=== PATIENT | female | born 1990 | race Caucasian/White ===

== ENCOUNTER 2018-01-12 18:42 | Emergency (ER) | payer BC, OTHER ==
[~2018-01-12] VITALS: Ht 170.2 cm; Wt 90.7 kg
[2018-01-12] MEDS ORDERED: LACTATED RINGERS 1,000 ML IV ONE (18:56)
--- NOTE | 2018-01-12 19:05 | ED Trauma-Multisystem ---
General Chief Complaint: Trauma POV Arrival Activation Stated Complaint: R ARM INJ AND HEAD BUCKED OFF HORSE/POSS CONCUSSIO Source of Information: Patient, Family, Spouse Exam Limitations: No Limitations History of Present Illness Date Seen by Provider: January 12, 2018 Time Seen by Provider: 18:47 Initial Comments Patient arrives by POV with chief complaint of being bucked off a horse landing on her right shoulder and neck. She's having pain in her right shoulder not so much in her neck. She says she has no pain in her head. She says she was knocked out for an unknown amount several minutes. She says after that she had about 15-20 minutes of complete blindness in bilateral eyes. She denies any double vision or blurry vision. She denies any previous medical or substantial surgical history. She says she has broke her arm in the past years ago. She is not on control. She does not take any medicines nor did she have allergies. She does not smoke but drinks occasionally with her last drink about 3 days ago. She denies any recreational drug use. She says the fall injury happened within the last 45 minutes. Her father picked her up and brought her straight to the ER which she says takes about [address] Allergies and Home Medications Allergies Coded Allergies: No Known Drug Allergies (Unverified , 01/12/18) Home Medications Hydrocodone Bit/Acetaminophen 1 Tab Tab, 1-2 EACH PO Q6H PRN for BREAKTHROUGH PAIN Prescribed by: CRISTIAN RICH on 01/12/182033 Patient Home Medication List Home Medication List Reviewed: Yes Review of Systems Constitutional: No chills, No diaphoresis Eyes: Blindness; Denies Blurred Vision, Denies Drainage, Denies Pain Ears: Denies Dizziness, Denies Pain Nose: No Bloody Discharge, No Clear Discharge Mouth: No Bloody Discharge, No Clear Discharge Throat: No Aphonia, No Hoarse, No Muffled, No Neck Stiffness, No Pain Respiratory: No cough, No short of breath Cardiovascular: Denies Chest Pain, Denies Palpitations, Denies Syncope Gastrointestinal: No abdominal pain, No constipation, No diarrhea, No nausea, No vomiting Genitourinary: No discharge, No dysuria Past Zikidpp-Yyveuu-Ijiywl Hx Patient Social History Alcohol Use: Occasionally Uses Recreational Drug Use: No Smoking Status: Never a Smoker Recent Foreign Travel: No Contact w/Someone Who Travel: No Physical Exam Vital Signs Vital Signs - First Documented 01/12/18 18:42 Temp 96.0 Pulse 59 Resp 24 B/P (MAP) 97/64 (75) Pulse Ox 96 General Appearance: WD/WN, Mild Distress Head: No Evidence of Injury; No Active Bleeding, No Khanna's Sign, No Contusions, No Raccoon Eyes, No Swelling, No Tenderness Eyes: Bilateral Eye Normal Inspection, Bilateral Eye PERRL, Bilateral Eye EOMI Ears, Nose, Throat: Hearing Grossly Normal, No Evidence of ENT Injury, No Dental Injury; No Clear Fluid (Ears), No Clear Fluid (Nose), No Hemotympanum, No Midface Instability, No Dental Injury Neck: Normal Inspection, Non Tender, Supple Cardiovascular: Regular Rate, Rhythm, No Edema, Normal Peripheral Pulses Respiratory: Chest Non Tender, Lungs Clear, Normal Breath Sounds, No Accessory Muscle Use, No Respiratory Distress Gastrointestinal: Normal Bowel Sounds, No Organomegaly, Non Tender, Soft Back: Normal Inspection, No Vertebral Tenderness Extremity: Normal Capillary Refill, Normal Inspection, Normal Range of Motion, Non Tender, No Calf Tenderness Neurologic/Psychiatric: Alert, Oriented x3, No Motor/Sensory Deficits, Normal Mood/Affect, solar tech II-XII Norm as Tested Skin: Normal Color, Warm/Dry Beaumont Coma Score Best Eye Response (Beaumont): (4) Open Spontaneously Best Verbal Response (Anai): (5) Oriented Best Motor Response (Beaumont): (6) Obeys Commands Anai Total: 15 Progress/Results/Core Measures Results/Orders Lab Results Laboratory Tests Test 01/12/18 18:53 01/12/18 20:50 Range/Units White Blood Count 8.6 4.3-11.0 10^3/uL Red Blood Count 4.85 4.35-5.85 10^6/uL Hemoglobin 14.4 11.5-16.0 G/DL Hematocrit 42 35-52 % Mean Corpuscular Volume 86 80-99 FL Mean Corpuscular Hemoglobin 30 25-34 PG Mean Corpuscular Hemoglobin Concent 34 32-36 G/DL Red Cell Distribution Width 12.8 10.0-14.5 % Platelet Count 258 130-400 10^3/uL Mean Platelet Volume 11.1 H 7.4-10.4 FL Sodium Level 142 135-145 MMOL/L Potassium Level 3.2 L 3.6-5.0 MMOL/L Chloride Level 107 98-107 MMOL/L Carbon Dioxide Level 24 21-32 MMOL/L Anion Gap 11 5-14 MMOL/L Blood Urea Nitrogen 9 7-18 MG/DL Creatinine 0.80 0.60-1.30 MG/DL Estimat Glomerular Filtration Rate > 60 BUN/Creatinine Ratio 11 Glucose Level 114 H 70-105 MG/DL Calcium Level 9.5 8.5-10.1 MG/DL Total Bilirubin 0.4 0.1-1.0 MG/DL Direct Bilirubin 0.2 0.0-0.3 MG/DL Indirect Bilirubin 0.2 MG/DL Aspartate Amino Transf (AST/SGOT) 41 H 5-34 U/L Alanine Aminotransferase (ALT/SGPT) 30 0-55 U/L Alkaline Phosphatase 67 40-136 U/L Total Protein 7.3 6.4-8.2 GM/DL Albumin 4.5 3.2-4.5 GM/DL Serum Test, Qualitative NEGATIVE NEGATIVE Serum Alcohol < 10 <10 MG/DL Urine Color YELLOW Urine Clarity CLEAR Urine pH 5 5-9 Urine Specific [place] 1.010 L 1.016-1.022 Urine Protein 3+ H NEGATIVE Urine Glucose (UA) NEGATIVE NEGATIVE Urine Ketones NEGATIVE NEGATIVE Urine Nitrite NEGATIVE NEGATIVE Urine Bilirubin NEGATIVE NEGATIVE Urine Urobilinogen NORMAL NORMAL MG/DL Urine Leukocyte Esterase NEGATIVE NEGATIVE Urine RBC (Auto) 5+ H NEGATIVE Urine RBC >100 H /HPF Urine WBC NONE /HPF Urine Squamous Epithelial Cells 2-5 /HPF Urine Crystals NONE /LPF Urine Bacteria FEW H /HPF Urine Casts NONE /LPF Urine Mucus SMALL H /LPF Urine Culture Indicated NO My Orders Orders - CRISTIAN RICH Cbc No Diff (01/12/18 18:58) Basic Metabolic Panel (01/12/18 18:58) Liver Panel (01/12/18 18:58) Alcohol (01/12/18 18:58) Hcg,Qualitative Serum (01/12/18 18:58) Ua Culture If Indicated (01/12/18 18:58) Ct Head/Cervical Spine Wo (01/12/18 18:58) Chest 1 View, Ap/Pa Only (01/12/18 18:58) End Tidal Co2 (01/12/18 18:58) Monitor-Rhythm Ecg Trace Only (5/7/18 18:58) Saline Lock/Iv-Start (01/12/18 18:58) Saline Lock/Iv-Start (01/12/18 18:58) Lactated Ringers (Lr 1000 Ml Iv Solution (01/12/18 18:56) Ct Chest W (01/12/18 19:02) Shoulder, Right, 3 Views (01/12/18 19:02) Clavicle, Right (01/12/18 19:02) Pelvis With Right Hip 2-3views (01/12/18 19:02) Fentanyl Injection (Sublimaze Injection (01/12/18 19:15) Ondansetron Injection (Zofran Injectio (01/12/18 19:15) Iohexol Injection (Omnipaque 350 Mg/Ml 1 (01/12/18 19:15) Ns (Ivpb) (Sodium Chloride 0.9% Ivpb Bag (01/12/18 19:15) Fentanyl Injection (Sublimaze Injection (01/12/18 20:15) Ketorolac Injection (Toradol Injection) (01/12/18 20:15) Rx-Hydrocodone/Apap 5-325 Mg (Rx-Vicodin (01/12/18 20:45) Ct Abdomen/Pelvis W (01/12/18 21:29) Iohexol Injection (Omnipaque 350 Mg/Ml 1 (01/12/18 22:00) Ns (Ivpb) (Sodium Chloride 0.9%) (01/12/18 22:00) Fentanyl Injection (Sublimaze Injection (01/12/18 23:00) Medications Given in ED Current Medications Medications Dose Ordered Sig/Yeni Route Start Time Stop Time Status Last Admin Dose Admin Fentanyl Citrate 50 mcg ONCE ONCE IVP 01/12/18 19:15 01/12/18 19:16 DC 01/12/18 19:09 50 MCG Fentanyl Citrate 50 mcg ONCE ONCE IVP 01/12/18 20:15 01/12/18 20:16 DC 01/12/18 20:20 50 MCG Fentanyl Citrate 50 mcg ONCE ONCE IVP 01/12/18 23:00 01/12/18 23:01 DC 01/12/18 23:00 50 MCG Iohexol 75 ml ONCE ONCE IV 01/12/18 19:15 01/12/18 19:16 DC 01/12/18 19:37 75 ML Iohexol 100 ml ONCE ONCE IV 01/12/18 22:00 01/12/18 22:01 DC 01/12/18 22:26 100 ML Ketorolac Tromethamine 15 mg ONCE ONCE IVP 01/12/18 20:15 01/12/18 20:16 DC 01/12/18 20:20 15 MG Lactated Ringer's 1,000 ml @ STK-MED ONCE IV 01/12/18 18:56 01/12/18 19:01 DC 01/12/18 19:05 999 MLS/HR Ondansetron HCl 4 mg ONCE ONCE IVP 01/12/18 19:15 01/12/18 19:16 DC 01/12/18 19:09 4 MG Sodium Chloride 80 ml ONCE ONCE IV 01/12/18 22:00 01/12/18 22:01 DC 01/12/18 22:26 80 ML Sodium Chloride 100 ml ONCE ONCE IV 01/12/18 19:15 01/12/18 19:16 DC 01/12/18 19:37 100 ML Vital Signs/I&O 01/12/18 18:42 Temp 96.0 Pulse 59 Resp 24 B/P (MAP) 97/64 (75) Pulse Ox 96 Progress Progress Note #1: Time: 20:11 Progress Note Stable trauma patient plan to get CT chest given her shoulder instability and mild shortness of breath. Concern for clavicle fracture. We'll get x-rays of her shoulder and clavicle as well as her hips and CT of the head and neck. C- collar was placed on arrival. Fentanyl for pain and Zofran for nausea. Progress Note #2: Time: 20:45 Progress Note C-collar cleared at 2039. Patient will present a urinalysis and if it is clean we'll let her go home. Diagnostic Imaging Diagonstic Imaging: CT (c/o) Plain Films/CT/US/NM/MRI: c-spine, head Comments VIA [facility]. [place], [place] NAME: KOBI SANCHEZ [facility] REC#: [id number] PT STATUS: REG ER : 1990 PHYSICIAN: CRISTIAN RICH MD ADMIT DATE: 01/12/18/ER Draft Date of Exam:01/12/18 CT HEAD/CERVICAL SPINE WO PROCEDURE: CT head and CT cervical spine without contrast. TECHNIQUE: Multiple contiguous axial images were obtained through the brain and cervical spine without the use of intravenous contrast. Sagittal and coronal reformations through the cervical spine were then performed. INDICATION: Trauma, bucked off of horse with head and neck as well as chest pain. CT head: There is no intracranial hemorrhage. There is no hydrocephalus, edema, mass or mass effect. No pneumocephalus. There is no hemo-sinus. Shallow low-density air-fluid level in the right maxillary present. No appreciable facial fracture deformity, however. No orbital hematoma. CT cervical spine: Reconstruction views revealed normal alignment with the body heights maintained. No cervical fracture or paravertebral hematoma. No facet joint dislocation. No canal stenosis. IMPRESSION: CT head: No intracranial hemorrhage or acute pathology. CT cervical spine: No cervical spinal fracture, stenosis or traumatic malalignment. The results of this exam as well as separately dictated chest CT phoned to the ER physician. Dictated on workstation # [id number] Dict: 01/12/182000 Trans: 01/12/182008 [id number] Interpreted by: NILSA DO Electronically signed by: Reviewed: Reviewed by [place] Diagonstic Imaging: CT (with contrast) Plain Films/CT/US/NM/MRI: chest Comments 1-2% right pneumothorax with no obvious fractured rib. Right lateral third of her clavicle has a fracture. Nondisplaced, closed. VIA [place], [place] NAME: KOBI SANCHEZ [facility] REC#: [id number] PT STATUS: REG ER : 1990 PHYSICIAN: CRISTIAN RICH MD ADMIT DATE: 01/12/18/ER Draft Date of Exam:01/12/18 CT CHEST W PROCEDURE: CT chest with contrast only. TECHNIQUE: Multiple contiguous axial images were obtained through the chest after administration of intravenous contrast. INDICATION: Bucked off horse with chest pain. FINDINGS: There are mildly comminuted fractures involving the lateral third of the right clavicle. The visualized right rib segments showed no appreciable fracture deformity. Patient does, however, have a minute right pneumothorax anteriorly of 1 to 2% maximal. There is some dependent bibasilar partial atelectasis but no findings felt suggestive of urszula lung contusion or a pulmonary laceration. Sternum and manubrium appeared intact. The reconstruction views revealed no evidence for disruption to the diaphragm. There is no pericardial fluid. The aorta and great vessels unremarkable. No chest wall hematoma. The partially visualized upper abdomen appeared nonacute. The left lung, pleura and bony chest wall appeared unremarkable. IMPRESSION: 1. Right lateral third clavicular fracture, tiny right pneumothorax of 1-2% anteriorly with basilar atelectasis. No mediastinal or pericardial hemorrhage and no appreciable rib fracture. 2. Not mentioned above, partly calcified nodule left lower lobe adjacent to the hemidiaphragm presumed granuloma. No suspicious appearing mass. Dictated on workstation # [id number] Dict: 01/12/181956 Trans: 01/12/182004 [id number] Interpreted by: NILSA DO Electronically signed by: Reviewed: Reviewed by Me, Discussed w/Radiologist (loc) Diagonstic Imaging: Xray Plain Films/CT/US/NM/MRI: other (right shoulder and clavicle) Comments Closed, comminuted, lateral one third minimally displaced clavicle fracture with no other acute osseous abnormality noted. VIA [place], [place] NAME: KOBI SANCHEZ MED REC#: [id number] PT STATUS: REG ER : 1990 PHYSICIAN: CRISTIAN RICH MD ADMIT DATE: 01/12/18/ER Draft Date of Exam:01/12/18 CLAVICLE, RIGHT INDICATION: Fracture. FINDINGS: There is mildly comminuted fractures of the lateral third of the right clavicle fractures probable just medial to the level of the coracoclavicular ligament. The distal fragment shows mild caudal displacement. No significant overlap or foreshortening. No widening of the AC joint. IMPRESSION: Mildly displaced comminuted fractures distal clavicle without findings of joint disruption. Dictated on workstation # [id number] Dict: 01/12/182018 Trans: 01/12/182029 [id number] Interpreted by: NILSA DO Electronically signed by: NAME: KOBI SANCHEZ MED REC#: [id number] PHYSICIAN: CRISTIAN RICH MD CC: NILSA DO; CRISTIAN RICH Page 1 of 1 RADIOLOGY REPORT VIA [place] CC: NILSA DO; CRISTIAN RICH Page 1 of 1 RADIOLOGY REPORT NAME: KOBI SANCHEZ [facility] REC#: [id number] PT STATUS: REG ER : 1990 PHYSICIAN: CRISTIAN RICH MD ADMIT DATE: 01/12/18/ER Signed Date of Exam: 01/12/18 SHOULDER, RIGHT, 3 VIEWS INDICATION: Fracture. FINDINGS: There are comminuted fractures at the junction, middle and lateral thirds of the right clavicle without overlap, foreshortening, or significant angulation. The AC joint is intact. No widening of the coracoclavicular space. IMPRESSION: Likely medial to the coracoclavicular ligament, there are mildly comminuted clavicular shaft fractures without substantial displacement, overlap, or foreshortening. Dictated by: Dictated on workstation # [id number] Dict: 01/12/182014 Trans: 01/12/182022 Interpreted by: NILSA DO Electronically signed by: NILSA DO 01/12/182022 Reviewed: Reviewed by Me Diagonstic Imaging: Xray Plain Films/CT/US/NM/MRI: pelvis ( with 2v right hip) Comments Nonspecific bowel gas pattern. No soft tissue signs. No acute osseous abdomen mildly. Contrast seen in the bladder. VIA [facility]. [place], [place] NAME: KOBI SANCHEZ [facility] REC#: [id number] PT STATUS: REG ER : 1990 PHYSICIAN: CRISTIAN RICH MD ADMIT DATE: 01/12/18/ER Draft Date of Exam:01/12/18 PELVIS WITH RIGHT HIP 2-3VIEWS INDICATION: Bucked off horse. FINDINGS: There is contrast media opacifying the urinary bladder. AP pelvis and two-view right hip reveal no fracture or dislocation. IMPRESSION: No acute appearing abnormality. Dictated on workstation # [id number] Dict: 01/12/182014 Trans: 01/12/182023 [id number] Interpreted by: NILSA DO Electronically signed by: Reviewed: Reviewed by Me Diagonstic Imaging: Xray (1v) Plain Films/CT/US/NM/MRI: chest Comments No acute cardiopulmonary process noted. Closed, comminuted, minimally displaced lateral one third right clavicle fracture. VIA [facility]. [place], [place] NAME: KOBI SANCHEZ [facility] REC#: [id number] PT STATUS: REG ER : 1990 PHYSICIAN: CRISTIAN RICH MD ADMIT DATE: 01/12/18/ER Draft Date of Exam:01/12/18 CHEST 1 VIEW, AP/PA ONLY INDICATION: Bucked off horse. FINDINGS: There are comminuted fractures of the mid to distal thirds of the right clavicle. Cardiomediastinal and hilar contours are normal. There is contrast media being excreted by the kidneys. There is no appreciable rib fracture deformity. The minute pneumothorax on the right visualized on CT is imperceptible at this exam. IMPRESSION: Right clavicular fractures redemonstrated. Non-visualization of the known minute right pneumothorax. No other significant finding. Dictated on workstation # [id number] Dict: 01/12/182017 Trans: 01/12/182029 [id number] Interpreted by: NILSA DO Electronically signed by: Reviewed: Reviewed by Me Diagonstic Imaging: CT (c) Plain Films/CT/US/NM/MRI: abdomen, pelvis Comments Question tiny anterior right basilar pneumothorax. No abdominal or pelvic abnormality. Reviewed: Reviewed Night [facility] Study, Reviewed by Me Departure Impression Primary Impression: Fall from horse Qualified Codes: V80.010A - Animal-rider injured by fall from or being thrown from horse in noncollision accident, initial encounter Additional Impressions: Pneumothorax on right Clavicle fracture Qualified Codes: S42.034A - Nondisplaced fracture of lateral end of right clavicle, initial encounter for closed fracture Disposition: 01 HOME, SELF-CARE Condition: Stable Departure-Patient Inst. Referrals: RODNEY WALALCE MD NO,LOCAL PHYSICIAN (PCP) Primary Care Physician Patient Instructions: Clavicle Fracture (DC) Add. Discharge Instructions: Call [facility], Dr Wallace to get an appointment in 1-2 weeks by dialing . You can use 500 mg of Tylenol every 6 hours in addition to one or 2 tablets of the hydrocodone every 6 hours as needed. If you're using the hydrocodone you should not mix this with alcohol as it may cause you to be very drowsy. You should also be on a laxative such as polyethylene glycol, MiraLAX 1 capful in 6-8 ounces of water daily every day that you're using the opiates. For the first 3 days you should apply ice for 20-30 minutes to your right collarbone every 4 hours as needed for swelling or pain. Wear the sling at all times to immobilize your arm in a neutral position. If you're not using the hydrocodone you can use 1000 mg of Tylenol every 8 hours as well as either 2 capsules of Aleve twice a day or 800 mg of ibuprofen every 8 hours. Please call your primary care physician to follow up this week or the next for your blood in the urine and repeat a urinalysis. Return to the ER if you begin to have significant pain in your belly. All discharge instructions reviewed with patient and/or family. Voiced understanding. Scripts Hydrocodone Bit/Acetaminophen (Hydrocodone/Acetaminophen 5/325mg Tablet) 1 Tab Tab 1-2 EACH PO Q6H PRN for BREAKTHROUGH PAIN for 14 Days, #30 TAB 0 Refills Prov: CRISTIAN RICH 01/12/18 Work/School Note: Work Release Form Date Seen in the Emergency Department: January 12, 2018 Return to Work: January 13, 2018 Restrictions: Need Release from Doctor Other Restrictions Listed Below: Wear sling at all times. Copy Copies To 1: RODNEY WALLACE MD, TITUS J January 12, 2018 19:05
[2018-01-12 19:08] LABS: HEMOGLOBIN 14.4 G/DL (11.5-16.0); MEAN PLATELET VOLUME 11.1 FL (7.4-10.4); RED BLOOD COUNT 4.85 10^6/uL (4.35-5.85); RED CELL DISTRIBUTION WIDTH 12.8 % (10.0-14.5); WHITE BLOOD COUNT 8.6 10^3/uL (4.3-11.0)
[2018-01-12] MEDS ORDERED: ONDANSETRON 4 MG/2 ML (SDV) Z0FRAN IVP ONE (19:15)
[2018-01-12] MEDS ORDERED: IOHEXOL 350 MG/ML 100 ML (OMNIPAQUE 350) VIAL IV ONE ×2 (19:15→22:00)
[2018-01-12] MEDS ORDERED: NS 100 ML (IVPB) BAG IV ONE (19:15)
[2018-01-12] MEDS ORDERED: fentaNYL INJECTION 100 MCG/2 ML AMP IVP ONE ×3 (19:15→23:00)
[2018-01-12 19:19] LABS: ALANINE AMINOTRANSFERASE 30 U/L (0-55); ALBUMIN 4.5 GM/DL (3.2-4.5); ALKALINE PHOSPHATASE 67 U/L (40-136); BILIRUBIN,DIRECT 0.2 MG/DL (0.0-0.3); BILIRUBIN,INDIRECT 0.2 MG/DL; BILIRUBIN,TOTAL 0.4 MG/DL (0.1-1.0); BUN/CREATININE RATIO 11; CALCIUM 9.5 MG/DL (8.5-10.1); CARBON DIOXIDE 24 MMOL/L (21-32); CHLORIDE 107 MMOL/L (98-107); GFR ESTIMATED > 60; GLUCOSE 114 MG/DL (70-105); POTASSIUM 3.2 MMOL/L (3.6-5.0); SODIUM 142 MMOL/L (135-145); TOTAL PROTEIN 7.3 GM/DL (6.4-8.2)
--- NOTE | 2018-01-12 20:05 | Diagnostic Imaging Report ---
PROCEDURE: CT chest with contrast only. TECHNIQUE: Multiple contiguous axial images were obtained through the chest after administration of intravenous contrast. INDICATION: Bucked off horse with chest pain. FINDINGS: There are mildly comminuted fractures involving the lateral third of the right clavicle. The visualized right rib segments showed no appreciable fracture deformity. Patient does, however, have a minute right pneumothorax anteriorly of 1 to 2% maximal. There is some dependent bibasilar partial atelectasis but no findings felt suggestive of urszula lung contusion or a pulmonary laceration. Sternum and manubrium appeared intact. The reconstruction views revealed no evidence for disruption to the diaphragm. There is no pericardial fluid. The aorta and great vessels unremarkable. No chest wall hematoma. The partially visualized upper abdomen appeared nonacute. The left lung, pleura and bony chest wall appeared unremarkable. IMPRESSION: 1. Right lateral third clavicular fracture, tiny right pneumothorax of 1-2% anteriorly with basilar atelectasis. No mediastinal or pericardial hemorrhage and no appreciable rib fracture. 2. Not mentioned above, partly calcified nodule left lower lobe adjacent to the hemidiaphragm presumed granuloma. No suspicious appearing mass. Dictated by: Dictated on workstation # [id number]
--- NOTE | 2018-01-12 20:10 | Diagnostic Imaging Report ---
PROCEDURE: CT head and CT cervical spine without contrast. TECHNIQUE: Multiple contiguous axial images were obtained through the brain and cervical spine without the use of intravenous contrast. Sagittal and coronal reformations through the cervical spine were then performed. INDICATION: Trauma, bucked off of horse with head and neck as well as chest pain. CT head: There is no intracranial hemorrhage. There is no hydrocephalus, edema, mass or mass effect. No pneumocephalus. There is no hemo-sinus. Shallow low-density air-fluid level in the right maxillary present. No appreciable facial fracture deformity, however. No orbital hematoma. CT cervical spine: Reconstruction views revealed normal alignment with the body heights maintained. No cervical fracture or paravertebral hematoma. No facet joint dislocation. No canal stenosis. IMPRESSION: CT head: No intracranial hemorrhage or acute pathology. CT cervical spine: No cervical spinal fracture, stenosis or traumatic malalignment. The results of this exam as well as separately dictated chest CT phoned to the ER physician. Dictated by: Dictated on workstation # [id number]
[2018-01-12] MEDS ORDERED: KETOROLAC 30 MG/ML VIAL IVP ONE (20:15)
--- NOTE | 2018-01-12 20:23 | Diagnostic Imaging Report ---
INDICATION: Fracture. FINDINGS: There are comminuted fractures at the junction, middle and lateral thirds of the right clavicle without overlap, foreshortening, or significant angulation. The AC joint is intact. No widening of the coracoclavicular space. IMPRESSION: Likely medial to the coracoclavicular ligament, there are mildly comminuted clavicular shaft fractures without substantial displacement, overlap, or foreshortening. Dictated by: Dictated on workstation # [id number]
--- NOTE | 2018-01-12 20:24 | Diagnostic Imaging Report ---
INDICATION: Bucked off horse. FINDINGS: There is contrast media opacifying the urinary bladder. AP pelvis and two-view right hip reveal no fracture or dislocation. IMPRESSION: No acute appearing abnormality. Dictated by: Dictated on workstation # [id number]
--- NOTE | 2018-01-12 20:30 | Diagnostic Imaging Report ---
INDICATION: Bucked off horse. FINDINGS: There are comminuted fractures of the mid to distal thirds of the right clavicle. Cardiomediastinal and hilar contours are normal. There is contrast media being excreted by the kidneys. There is no appreciable rib fracture deformity. The minute pneumothorax on the right visualized on CT is imperceptible at this exam. IMPRESSION: Right clavicular fractures redemonstrated. Non-visualization of the known minute right pneumothorax. No other significant finding. Dictated by: Dictated on workstation # [id number]
--- NOTE | 2018-01-12 20:30 | Diagnostic Imaging Report ---
INDICATION: Fracture. FINDINGS: There is mildly comminuted fractures of the lateral third of the right clavicle fractures probable just medial to the level of the coracoclavicular ligament. The distal fragment shows mild caudal displacement. No significant overlap or foreshortening. No widening of the AC joint. IMPRESSION: Mildly displaced comminuted fractures distal clavicle without findings of joint disruption. Dictated by: Dictated on workstation # [id number]
[2018-01-12] MEDS ORDERED: ACHD5005 PO (20:34)
[2018-01-12] MEDS ORDERED: RX-HYDROCODONE/APAP 5/325 MG #4 TAB PK PO PRN (20:45)
[2018-01-12 20:58] LABS: BILIRUBIN,URINE NEGATIVE (NEGATIVE); CLARITY,URINE CLEAR; COLOR,URINE YELLOW; GLUCOSE, URINE (UA) NEGATIVE (NEGATIVE); KETONES,URINE NEGATIVE (NEGATIVE); LEUKOCYTE ESTERASE ,URINE NEGATIVE (NEGATIVE); NITRITE,URINE NEGATIVE (NEGATIVE); PH,URINE 5 (5-9); PROTEIN,URINE 3+ (NEGATIVE); UROBILINOGEN,URINE NORMAL (NORMAL)
[2018-01-12 21:26] LABS: BACTERIA,URINE FEW /HPF; RBC,URINE >100 /HPF
[2018-01-12] MEDS ORDERED: NS 250 ML (IVPB) BAG IV ONE (22:00)
[2018-01-12 23:17] VITALS: BP 107/63
--- NOTE | 2018-01-13 05:59 | Diagnostic Imaging Report ---
PROCEDURE: CT abdomen and pelvis with contrast. TECHNIQUE: Multiple contiguous axial images were obtained through the abdomen and pelvis after administration of intravenous contrast. INDICATION: Fall from horse. Hematuria. COMPARISON: CT chest with IV contrast also performed today. FINDINGS: Again seen is tiny right pneumothorax anteriorly. The liver, gallbladder, pancreas, spleen, adrenals, kidneys, collecting systems and bladder are negative. Reproductive structures are grossly unremarkable. No free intraperitoneal air or fluid. No lymphadenopathy. No evidence of bowel obstruction or injury. No evidence of vascular injury. Osseous structures are intact. IMPRESSION: 1. Partially visualized tiny right pneumothorax anteriorly is better appreciated on the chest CT also performed today. 2. No acute CT findings in the abdomen or pelvis. Dictated by: Dictated on workstation # [id number]
== END 2018-01-12 23:16 | disposition home or self-care (01) ==
LOC: ER 18:46
DX: S42.021A Displaced fracture of shaft of right clavicle, initial encounter for closed fracture (principal); S27.0XXA Traumatic pneumothorax, initial encounter; R40.2142 Coma scale, eyes open, spontaneous, at arrival to emergency department; R40.2252 Coma scale, best verbal response, oriented, at arrival to emergency department; R40.2362 Coma scale, best motor response, obeys commands, at arrival to emergency department; V80.010A Animal-rider injured by fall from or being thrown from horse in noncollision accident, initial encounter
CPT/HCPCS: 36415; 70450; 71045; 71260; 72125; 73000; 73030; 74177; 80048; 80076; 80320; 81000; 84703; 85027; 93041